=== PATIENT | male | born 1975 | race Caucasian/White ===

== ENCOUNTER → 2017-12-17 | Outpatient (CLI) | payer OTHER ==
[2017-12-17] MEDS: IOHEXOL 300 MG/ML 50 ML VIAL. IART (16:00)
[2017-12-17] MEDS: GADOBUTROL 7.5 MMOL/7.5 ML VIAL INT ART (16:01)
[2017-12-17] MEDS: LIDOCAINE 1% Multi-Dose 20 ML VIAL. ID (16:01)
== END | disposition home or self-care (01) ==
LOC: KCIC 14:27
DX: M25.511 Pain in right shoulder (principal)
CPT/HCPCS: 73040; 73222; A9585; Q9967